=== PATIENT | female | born 1985 | race Caucasian/White ===

== ENCOUNTER 2021-12-04 16:34 | Emergency (ER) | payer OTHER ==
[~2021-12-04] VITALS: Ht 167.6 cm; Wt 107.0 kg
[2021-12-04] MEDS ORDERED: PREDNISONE20 MG PO (21:35)
[2021-12-04] MEDS ORDERED: HYDROCODON-ACE1 EA10 PO (21:35)
== END 2021-12-04 21:58 | disposition home or self-care (01) ==
LOC: ED 16:34
DX: M79.662 Pain in left lower leg (principal); M25.572 Pain in left ankle and joints of left foot
CPT/HCPCS: 36415; 73590; 73706; 80053; 82553; 83605; 84443; 84703; 85025; 85651; 86140; 93971; 96374; 96375; 96376; 99284-25; A9270; J1170; J1885; J2405; J7030; J7512; Q9967

== ENCOUNTER 2022-02-03 06:38 | Emergency (ER) | payer OTHER ==
[~2022-02-03] VITALS: Ht 167.6 cm; Wt 102.1 kg
[~2022-02-03 06:38] MED LIST: AMOX TR-K CLV1 EAC1 PO; HYDROCODON-ACE1 EA10 PO; ONDANSETRON ODT4 MG PO; PREDNISONE20 MG PO
== END 2022-02-03 10:00 | disposition home or self-care (01) ==
LOC: ED 06:38
DX: U07.1 COVID-19 (principal)
CPT/HCPCS: 36415; 80048; 84703; 87502; 96361; 96374; 96375; 99283-25; C9803; J1200; J1885; J2765; J7030; U0003

== ENCOUNTER 2024-02-19 05:26 | Emergency (ER) | payer OTHER ==
[~2024-02-19] VITALS: Ht 167.6 cm; Wt 108.0 kg
[2024-02-19] MEDS ORDERED: GABAPENTIN300 MG PO (05:33)
[2024-02-19] MEDS ORDERED: LISINOPRIL-HCT1 EACH PO (05:33)
[2024-02-19] MEDS ORDERED: CYCLOBENZAPRINE HCL 10 MG TAB PO ONE (05:45)
[2024-02-19] MEDS ORDERED: KETOROLAC TROMETHAMINE 60 MG/2 ML VIAL IM ONE (05:45)
[2024-02-19] MEDS ORDERED: ONDANSETRON 4 MG TAB ODT SL ONE (05:45)
[2024-02-19 06:11] LABS: INFLUENZA B NAA NEGATIVE (NEGATIVE); RESPIRATORY SYNCYTIAL VIR NAA NEGATIVE (NEGATIVE)
[2024-02-19] MEDS ORDERED: PAXLOVID 300-11 EAC1 PO (06:18)
[2024-02-19] MEDS ORDERED: ONDANSETRON ODT8 MG PO (06:20)
[2024-02-19] MEDS ORDERED: CYCLOBENZAPRINE10 MG PO (06:20)
[2024-02-19] MEDS ORDERED: CYCLOBENZAPRINE HCL 10 MG HOME.PACK PO ONE (06:30)
[2024-02-19] MEDS ORDERED: ONDANSETRON 4 MG HOME.PACK SL ONE (06:30)
[2024-02-19 06:38] VITALS: BP 136/67
--- NOTE | 2024-02-19 12:55 | EKG ---
[facility] [address] [facility] [place], [place] [address] Signed Sinus tachycardia Otherwise normal ECG No previous ECGs available Confirmed by Stacy Rdz MD ([id number]) on 02/19/2024 12:55:04 PM Electronically Signed By: STACY RDZ 02/19/24 1255 PATIENT NAME: EVETTE GREENE Electrocardiogram DATE OF : 85 PHYSICIAN: STACY RDZ REPORT #: [id number] REPORT IS CONFIDENTIAL AND NOT TO BE RELEASED WITHOUT AUTHORIZATION
== END 2024-02-19 06:38 | disposition home or self-care (01) ==
LOC: ED 05:26
PROVIDERS: Family Medicine
DX: U07.1 COVID-19 (principal); E66.9 Obesity, unspecified; Z79.899 Other long term (current) drug therapy
CPT/HCPCS: 71045; 87502; 93005; 93010; 96372; 99284-25; A9270; J1885; U0002

== ENCOUNTER 2024-06-30 16:36 | Emergency (ER) | payer OTHER ==
[~2024-06-30] VITALS: Ht 167.6 cm; Wt 107.8 kg
[~2024-06-30 16:36] MED LIST changes: +CYCLOBENZAPRINE10 MG PO; +GABAPENTIN300 MG PO; +LISINOPRIL-HCT1 EACH PO; +ONDANSETRON ODT8 MG PO; +PAXLOVID 300-11 EAC1 PO
[2024-06-30] MEDS ORDERED: ALBUTEROL SULFATE 0.5% 2.5 MG/0.5 ML VIAL INH ONE (17:00)
[2024-06-30] MEDS ORDERED: HYDROmorphone HCL 1 MG/ML SYR IV PRN (17:00)
[2024-06-30] MEDS ORDERED: methylPREDNISolone SOD SUCC 125 MG/2 ML VIAL IV ONE (17:00)
[2024-06-30] MEDS ORDERED: KETOROLAC TROMETHAMINE 30 MG/ML VIAL IV ONE (17:00)
[2024-06-30 17:06] LABS: BASOPHILS 0.6 % (0-2); EOSINOPHILS 1.7 % (0-6); HEMOGLOBIN 13.6 g/dL (12.0-18.0); LYMPHOCYTES 11.4 % (24-44); MCH 29.1 (27-36); MCHC 33.9 g/dl (30-36); MCV 85.9 fl (81-99); MONOCYTES 5.9 % (0-12); NEUTROPHILS 80.4 % (39-80); PLATELET COUNT 264 K/uL (140-440); RBC 4.66 M/ul (4.3-5.7); RDW 14.6 (10.5-15.0)
[2024-06-30 17:22] LABS: ALBUMIN 3.1 g/dL (3.4-5.0); ALBUMIN/GLOBULIN RATIO 0.82 (1.1-2.4); ANION GAP 14.9 (7-21); BILIRUBIN, TOTAL 0.3 ng/dL (0.2-1.0); BUN/CREATININE RATIO 11.76 (6.0-28.6); CALCIUM 8.9 mg/dL (8.5-10.1); CREATININE, SERUM 0.85 mg/dL (0.55-1.02); POTASSIUM 3.9 mmol/L (3.5-5.1); PROTEIN, TOTAL 6.9 g/dL (6.4-8.2)
[2024-06-30] MEDS ORDERED: HYDROCODONE BIT/ACETAMINOPHEN 5/325 MG 1 TAB HOME.PACK PO ONE (19:00)
[2024-06-30 19:43] VITALS: BP 134/65
== END 2024-06-30 19:40 | disposition home or self-care (01) ==
LOC: ED 16:36
PROVIDERS: Emergency Medicine
DX: T54.91XA Toxic effect of unspecified corrosive substance, accidental (unintentional), initial encounter (principal); J68.0 Bronchitis and pneumonitis due to chemicals, gases, fumes and vapors; E66.9 Obesity, unspecified; Z68.38 Body mass index [BMI] 38.0-38.9, adult; Z79.899 Other long term (current) drug therapy
CPT/HCPCS: 36415; 71045; 80053; 85025; 94640; 94644; 96374; 96375; 96376; 99285-25; A9270; J1171; J1885; J2919